=== PATIENT | male | born 1960 | race Caucasian/White ===

== ENCOUNTER 2017-08-31 20:52 | Inpatient (IN) | payer OTHER ==
[2017-08-31 21:43] LABS: ADD MAN DIFF? NO
[2017-08-31 21:47] LABS: BASOPHILS % 0.5 % (0.0-2.0); EOSINOPHILS # 0.1 10^3/ul (0.0-0.5); EOSINOPHILS % 0.8 % (0.0-7.0); HEMATOCRIT 42.1 % (42.0-52.0); HEMOGLOBIN 15.2 g/dl (14.0-18.0); LYMPHOCYTES # 1.6 10^3/ul (0.8-2.9); LYMPHOCYTES % 25.5 % (15.0-51.0); MEAN CORPUSCULAR HGB CONC 36.1 g/dl (32.0-37.0); MEAN CORPUSCULAR VOLUME 85.9 fl (82.0-101.0); MEAN PLATELET VOLUME 11.7 fl (7.4-10.4); MONOCYTE # 0.4 10^3/ul (0.3-0.9); NEUTROPHIL # 4.3 10^3/ul (1.6-7.5); PLATELET COUNT 202 10^3/UL (140-415)
[2017-08-31 21:47] LABS: WHITE BLOOD COUNT 6.4 10^3/ul (4.8-10.8)
[2017-08-31] MEDS: ASPIRIN 81 MG TAB PO (21:53)
[2017-08-31] MEDS: NITROGLYCERIN 2% 1 GM OINT PKT TD (21:56)
[2017-08-31 22:03] LABS: ANION GAP 14 (8-16); BLOOD UREA NITROGEN 13 mg/dl (7-20); CALCIUM 8.3 mg/dl (8.4-10.2); CARBON DIOXIDE 29 mmol/L (21-31); CHLORIDE 94 mmol/L (97-110); POTASSIUM 3.4 mmol/L (3.5-5.1); SODIUM 134 mmol/L (135-144)
[2017-08-31 22:04] LABS: GLUCOSE 574 mg/dl (70-220)
[2017-08-31 22:18] LABS: TROPONIN-I < 0.012 ng/ml (0.00-0.12)
[2017-08-31] MEDS: SOD CHLORIDE 0.9% 1,000 ML IV (22:18)
[2017-08-31 22:46] LABS: MODE ROOM AIR; MetHgb Venous 0.2 %; Sample Type Blood venous; Site VENOUS LINE; Venous COHb 0.1 %; Venous Fraction OxyHgb 89.9 %; Venous Oxygen Sat 90.2 mmHG (55.0-75.0); Venous Total Hemglobin 15.2 g/dl
[2017-08-31] MEDS ORDERED: ACETAMINOPHEN 325 MG TAB PO (23:00)
[2017-08-31] MEDS ORDERED: ONDANSETRON 4 MG INJ IV (23:00)
[2017-08-31] MEDS: INSULIN LISPRO 100 UNIT/ML VIAL SC (23:03)
[2017-09-01] MEDS ORDERED: ACETAMINOPHEN 325 MG TAB PO (02:00)
[2017-09-01] MEDS ORDERED: NACL 0.9% 3 ML SYG IV (02:00)
[2017-09-01] MEDS ORDERED: NITROGLYCERIN (SL) 0.4 MG TAB SL (02:00)
[2017-09-01] MEDS ORDERED: GLUCOSE GEL 15 GRAM TUBE PO ×2 (02:00)
[2017-09-01] MEDS ORDERED: ALBUTEROL/IPRATROPIUM (NEB) 3 ML AMP HHN (02:00)
[2017-09-01] MEDS ORDERED: DEXTROSE 50% 50 ML SYRINGE IV ×2 (02:00)
[2017-09-01] MEDS ORDERED: GLUCAGON 1 MG INJ IM (02:00)
[2017-09-01] MEDS ORDERED: ONDANSETRON 4 MG INJ IV (02:00)
[2017-09-01] MEDS ORDERED: GLUCOSE GEL 15 GRAM TUBE BUCCAL (02:00)
[2017-09-01] MEDS: ACCU-CHEK XX (02:30)
[2017-09-01] MEDS: METOPROLOL 25 MG TAB PO ×3 (03:01→21:27)
[2017-09-01] MEDS: INSULIN GLARGINE [LANtus] 3 ML PEN SC ×2 (03:04→19:41)
[2017-09-01 04:07] LABS: ADD MAN DIFF? NO
[2017-09-01 04:15] LABS: BASOPHILS % 0.4 % (0.0-2.0); EOSINOPHILS # 0.1 10^3/ul (0.0-0.5); EOSINOPHILS % 1.3 % (0.0-7.0); HEMATOCRIT 39.8 % (42.0-52.0); HEMOGLOBIN 14.2 g/dl (14.0-18.0); LYMPHOCYTES # 2.3 10^3/ul (0.8-2.9); LYMPHOCYTES % 33.1 % (15.0-51.0); MEAN CORPUSCULAR HEMOGLOBIN 30.9 pg (29.0-33.0); MEAN CORPUSCULAR HGB CONC 35.7 g/dl (32.0-37.0); MEAN CORPUSCULAR VOLUME 86.5 fl (82.0-101.0); MEAN PLATELET VOLUME 11.2 fl (7.4-10.4); MONOCYTE # 0.5 10^3/ul (0.3-0.9); MONOCYTES % 6.7 % (0.0-11.0); NEUTROPHILS % 58.2 % (39.0-77.0); PLATELET COUNT 196 10^3/UL (140-415); RED CELL DISTRIBUTION WIDTH 12.1 % (11.5-14.5)
[2017-09-01 04:15] LABS: WHITE BLOOD COUNT 6.9 10^3/ul (4.8-10.8)
[2017-09-01 04:42] LABS: CREATINE KINASE 57 IU/L (23-200)
[2017-09-01 04:45] LABS: ALANINE AMINOTRANSFERASE 27 IU/L (13-69); ALBUMIN/GLOBULIN RATIO 1.25; ALKALINE PHOSPHATASE 147 IU/L (42-121); ANION GAP 9 (8-16); ASPARTATE AMINO TRANSFERASE 16 IU/L (15-46); BLOOD UREA NITROGEN 11 mg/dl (7-20); CALCIUM 8.8 mg/dl (8.4-10.2); CARBON DIOXIDE 29 mmol/L (21-31); CHLORIDE 104 mmol/L (97-110); CHOL/HDL RATIO 3.9 RATIO; CHOLESTEROL 165 mg/dl (100-200); CREATININE 0.69 mg/dl (0.61-1.24); GLUCOSE 273 mg/dl (70-220); HDL CHOLESTEROL 42 mg/dl (28-71); LDL CHOLESTEROL,CALCULATED 94 mg/dl; MAGNESIUM 1.8 mg/dl (1.7-2.5); SODIUM 139 mmol/L (135-144); TOTAL PROTEIN 5.4 g/dl (6.1-8.1); TRIGLYCERIDES 143 mg/dl (0-149)
[2017-09-01 04:48] LABS: HEMOGLOBIN A1C 12.5 % (0-5.9)
[2017-09-01 04:55] LABS: CK INDEX 3.6
[2017-09-01 04:56] LABS: CK-MB 2.06 ng/ml (0.0-2.4); TROPONIN-I < 0.012 ng/ml (0.00-0.12)
[2017-09-01] MEDS: POTASSIUM CHLORIDE (SR) 10 MEQ TAB PO ×2 (07:13→10:24)
[2017-09-01] MEDS: INSULIN ASPART [NOVOLOG] 3 ML PEN SC ×8 (08:05→21:40)
[2017-09-01] MEDS: ASPIRIN (EC) 81 MG TAB PO (08:35)
[2017-09-01] MEDS: ENOXAPARIN 40 MG/0.4 ML SYG SC (09:26)
[2017-09-01] MEDS: BENAZEPRIL 5 MG TAB PO ×2 (09:26→21:28)
[2017-09-01] MEDS: FLUOXETINE 20 MG CAP PO (09:26)
[2017-09-01 11:28] LABS: CREATINE KINASE 52 IU/L (23-200)
[2017-09-01 11:39] LABS: CK INDEX 3.5
[2017-09-01 11:45] LABS: CK-MB 1.83 ng/ml (0.0-2.4); TROPONIN-I < 0.012 ng/ml (0.00-0.12)
[2017-09-01 18:43] LABS: GLUCOSE 163 mg/dl (70-220)
[2017-09-01] MEDS: ATORVASTATIN 40 MG TAB PO (21:27)
[2017-09-01] MEDS: GABAPENTIN 300 MG CAP PO (21:28)
[2017-09-01] MEDS: ISOSORBIDE DINITRATE 20 MG TAB PO (23:00)
[2017-09-02] MEDS: ACCU-CHEK XX (02:19)
[2017-09-02 06:53] LABS: ADD MAN DIFF? NO
[2017-09-02 07:02] LABS: BASOPHILS % 0.5 % (0.0-2.0); EOSINOPHILS # 0.1 10^3/ul (0.0-0.5); EOSINOPHILS % 1.3 % (0.0-7.0); HEMATOCRIT 43.3 % (42.0-52.0); LYMPHOCYTES # 2.9 10^3/ul (0.8-2.9); LYMPHOCYTES % 36.4 % (15.0-51.0); MEAN CORPUSCULAR HEMOGLOBIN 31.1 pg (29.0-33.0); MEAN CORPUSCULAR HGB CONC 34.6 g/dl (32.0-37.0); MEAN CORPUSCULAR VOLUME 89.6 fl (82.0-101.0); MEAN PLATELET VOLUME 12.1 fl (7.4-10.4); MONOCYTE # 0.5 10^3/ul (0.3-0.9); MONOCYTES % 6.8 % (0.0-11.0); NEUTROPHIL # 4.4 10^3/ul (1.6-7.5); NEUTROPHILS % 54.5 % (39.0-77.0); PLATELET COUNT 193 10^3/UL (140-415); RED BLOOD COUNT 4.83 10^6/ul (4.70-6.10); RED CELL DISTRIBUTION WIDTH 12.4 % (11.5-14.5)
[2017-09-02 07:38] LABS: TROPONIN-I < 0.012 ng/ml (0.00-0.12)
[2017-09-02 07:44] LABS: ANION GAP 14 (8-16); BLOOD UREA NITROGEN 13 mg/dl (7-20); CALCIUM 8.2 mg/dl (8.4-10.2); CARBON DIOXIDE 29 mmol/L (21-31); CHLORIDE 104 mmol/L (97-110); CREATININE 0.69 mg/dl (0.61-1.24); GLUCOSE 131 mg/dl (70-220); MAGNESIUM 1.7 mg/dl (1.7-2.5); PHOSPHORUS 3.6 mg/dl (2.5-4.9); POTASSIUM 4.2 mmol/L (3.5-5.1); SODIUM 143 mmol/L (135-144)
[2017-09-02] MEDS: INSULIN ASPART [NOVOLOG] 3 ML PEN SC ×7 (07:55→20:50)
[2017-09-02] MEDS: ASPIRIN (EC) 81 MG TAB PO (08:21)
[2017-09-02] MEDS: BENAZEPRIL 5 MG TAB PO ×2 (08:21→20:40)
[2017-09-02] MEDS: ISOSORBIDE DINITRATE 20 MG TAB PO ×3 (08:21→20:42)
[2017-09-02] MEDS: METOPROLOL 25 MG TAB PO ×2 (08:21→20:42)
[2017-09-02] MEDS: FLUOXETINE 20 MG CAP PO (08:21)
[2017-09-02] MEDS: ENOXAPARIN 40 MG/0.4 ML SYG SC (08:25)
[2017-09-02] MEDS: REGADENOSON 0.4 MG/5 ML SYG (11:54)
[2017-09-02] MEDS ORDERED: ONDANSETRON 4 MG INJ IV (12:00)
[2017-09-02] MEDS: MAGNESIUM OXIDE 400 MG TAB PO (18:06)
[2017-09-02] MEDS: GABAPENTIN 300 MG CAP PO (20:39)
[2017-09-02] MEDS: ATORVASTATIN 40 MG TAB PO (20:39)
[2017-09-02] MEDS: INSULIN GLARGINE [LANtus] 3 ML PEN SC (20:45)
[2017-09-03] MEDS: ACCU-CHEK XX (02:00)
[2017-09-03] MEDS: morphine 2 MG INJ IV ×3 (07:35→22:58)
[2017-09-03] MEDS: INSULIN ASPART [NOVOLOG] 3 ML PEN SC ×7 (07:55→20:39)
[2017-09-03] MEDS: ENOXAPARIN 40 MG/0.4 ML SYG SC (08:07)
[2017-09-03] MEDS: FLUOXETINE 20 MG CAP PO (08:09)
[2017-09-03] MEDS: BENAZEPRIL 5 MG TAB PO ×2 (08:09→20:40)
[2017-09-03] MEDS: ISOSORBIDE DINITRATE 20 MG TAB PO ×3 (08:09→20:39)
[2017-09-03] MEDS: ASPIRIN (EC) 81 MG TAB PO (08:10)
[2017-09-03] MEDS: METOPROLOL 25 MG TAB PO ×2 (08:10→20:40)
[2017-09-03] MEDS: INSULIN GLARGINE [LANtus] 3 ML PEN SC (20:38)
[2017-09-03] MEDS: GABAPENTIN 300 MG CAP PO (20:39)
[2017-09-03] MEDS: ATORVASTATIN 40 MG TAB PO (20:40)
[2017-09-04] MEDS: ACCU-CHEK XX (02:00)
[2017-09-04 07:27] LABS: ADD MAN DIFF? NO
[2017-09-04 07:31] LABS: WHITE BLOOD COUNT 7.1 10^3/ul (4.8-10.8)
[2017-09-04 07:31] LABS: BASOPHILS % 0.4 % (0.0-2.0); EOSINOPHILS # 0.1 10^3/ul (0.0-0.5); EOSINOPHILS % 1.1 % (0.0-7.0); HEMOGLOBIN 13.6 g/dl (14.0-18.0); LYMPHOCYTES # 1.7 10^3/ul (0.8-2.9); LYMPHOCYTES % 23.7 % (15.0-51.0); MEAN CORPUSCULAR HGB CONC 34.9 g/dl (32.0-37.0); MEAN CORPUSCULAR VOLUME 88.8 fl (82.0-101.0); MONOCYTE # 0.7 10^3/ul (0.3-0.9); MONOCYTES % 9.4 % (0.0-11.0); NEUTROPHIL # 4.6 10^3/ul (1.6-7.5); PLATELET COUNT 175 10^3/UL (140-415); RED BLOOD COUNT 4.39 10^6/ul (4.70-6.10); RED CELL DISTRIBUTION WIDTH 12.2 % (11.5-14.5)
[2017-09-04 07:48] LABS: INR 0.88; PT RATIO 0.9
[2017-09-04] MEDS: INSULIN ASPART [NOVOLOG] 3 ML PEN SC ×6 (07:55→20:57)
[2017-09-04 08:02] LABS: ANION GAP 11 (8-16); BLOOD UREA NITROGEN 11 mg/dl (7-20); CALCIUM 7.7 mg/dl (8.4-10.2); CARBON DIOXIDE 29 mmol/L (21-31); CHLORIDE 102 mmol/L (97-110); GLUCOSE 189 mg/dl (70-220); POTASSIUM 3.5 mmol/L (3.5-5.1); SODIUM 138 mmol/L (135-144)
[2017-09-04] MEDS: ENOXAPARIN 40 MG/0.4 ML SYG SC (08:13)
[2017-09-04] MEDS: ISOSORBIDE DINITRATE 20 MG TAB PO ×3 (08:34→21:06)
[2017-09-04] MEDS: DIAZEPAM 5 MG TAB PO (08:34)
[2017-09-04] MEDS: BENAZEPRIL 5 MG TAB PO ×2 (08:34→21:08)
[2017-09-04] MEDS: ASPIRIN (EC) 81 MG TAB PO (08:34)
[2017-09-04] MEDS: DIPHENHYDRAMINE 50 MG CAP PO (08:34)
[2017-09-04] MEDS: FLUOXETINE 20 MG CAP PO ×3 (08:34→20:51)
[2017-09-04] MEDS ORDERED: LIDOCAINE 1% (MDV) 20 ML INJ (08:52)
[2017-09-04] MEDS ORDERED: HEPARIN 1000 UNITS/ML 10 ML INJ (08:52)
[2017-09-04] MEDS ORDERED: FENTAnyl 50 MCG/ML VIAL (08:52)
[2017-09-04] MEDS ORDERED: MIDAZOLAM 1 MG/ML 2 ML INJ (08:53)
[2017-09-04] MEDS ORDERED: VERAPAMIL 5 MG INJ (08:53)
[2017-09-04] MEDS ORDERED: NITROGLYCERIN (IC) 100 MCG/ML INJ (08:53)
[2017-09-04] MEDS ORDERED: IOHEXOL 350MG/ML 50 ML BTL (09:59)
[2017-09-04] MEDS ORDERED: CLOPIDOGREL 300 MG TAB (09:59)
[2017-09-04] MEDS ORDERED: ASPIRIN 325 MG TAB (09:59)
[2017-09-04] MEDS ORDERED: IODIXANOL LOCM 100 ML BTL (09:59)
[2017-09-04] MEDS: SOD CHLORIDE 0.9% 1,000 ML IV (10:45)
[2017-09-04] MEDS ORDERED: AL HYDROX/MG HYDROX/SIMETH 30 ML CUP PO (11:00)
[2017-09-04] MEDS ORDERED: ACETAMINOPHEN 325 MG TAB PO (11:00)
[2017-09-04] MEDS ORDERED: ONDANSETRON 4 MG INJ IV (11:00)
[2017-09-04] MEDS: morphine 2 MG INJ IV (18:23)
[2017-09-04] MEDS: METOPROLOL 25 MG TAB PO ×2 (20:51→21:07)
[2017-09-04] MEDS: ATORVASTATIN 40 MG TAB PO (21:06)
[2017-09-04] MEDS: GABAPENTIN 300 MG CAP PO (21:06)
[2017-09-04] MEDS: INSULIN GLARGINE [LANtus] 3 ML PEN SC (22:02)
[2017-09-04] MEDS: OXYCODONE/ACETAMINOPHEN (5/325) TAB PO (23:01)
[2017-09-05] MEDS: ACCU-CHEK XX (02:00)
[2017-09-05] MEDS: ENOXAPARIN 40 MG/0.4 ML SYG SC (08:10)
[2017-09-05] MEDS: CLOPIDOGREL 75 MG TAB PO (08:11)
[2017-09-05] MEDS: ASPIRIN (EC) 81 MG TAB PO (08:12)
[2017-09-05] MEDS: FLUOXETINE 20 MG CAP PO (08:12)
[2017-09-05] MEDS: BENAZEPRIL 5 MG TAB PO (08:12)
[2017-09-05] MEDS: METOPROLOL 25 MG TAB PO ×2 (08:13→20:45)
[2017-09-05] MEDS: ISOSORBIDE DINITRATE 20 MG TAB PO ×3 (08:13→20:44)
[2017-09-05] MEDS: INSULIN ASPART [NOVOLOG] 3 ML PEN SC ×7 (08:17→20:54)
[2017-09-05 08:48] LABS: ADD MAN DIFF? NO
[2017-09-05 09:03] LABS: BASOPHILS % 0.4 % (0.0-2.0); EOSINOPHILS # 0.1 10^3/ul (0.0-0.5); EOSINOPHILS % 1.2 % (0.0-7.0); HEMATOCRIT 39.3 % (42.0-52.0); HEMOGLOBIN 13.5 g/dl (14.0-18.0); LYMPHOCYTES # 1.3 10^3/ul (0.8-2.9); LYMPHOCYTES % 17.4 % (15.0-51.0); MEAN CORPUSCULAR HGB CONC 34.4 g/dl (32.0-37.0); MEAN CORPUSCULAR VOLUME 90.1 fl (82.0-101.0); MEAN PLATELET VOLUME 12.2 fl (7.4-10.4); MONOCYTE # 0.5 10^3/ul (0.3-0.9); MONOCYTES % 7.2 % (0.0-11.0); NEUTROPHIL # 5.3 10^3/ul (1.6-7.5); NEUTROPHILS % 73.2 % (39.0-77.0); PLATELET COUNT 180 10^3/UL (140-415); RED BLOOD COUNT 4.36 10^6/ul (4.70-6.10); RED CELL DISTRIBUTION WIDTH 12.2 % (11.5-14.5)
[2017-09-05 09:03] LABS: WHITE BLOOD COUNT 7.3 10^3/ul (4.8-10.8)
[2017-09-05 09:47] LABS: ANION GAP 8 (8-16); BLOOD UREA NITROGEN 12 mg/dl (7-20); CARBON DIOXIDE 31 mmol/L (21-31); CHLORIDE 101 mmol/L (97-110); CREATININE 0.73 mg/dl (0.61-1.24); GLUCOSE 216 mg/dl (70-220); POTASSIUM 3.6 mmol/L (3.5-5.1); SODIUM 136 mmol/L (135-144)
[2017-09-05] MEDS: OXYCODONE/ACETAMINOPHEN (5/325) TAB PO (10:55)
[2017-09-05] MEDS: BENAZEPRIL 20 MG TAB PO (20:45)
[2017-09-05] MEDS: GABAPENTIN 300 MG CAP PO (20:45)
[2017-09-05] MEDS: ATORVASTATIN 40 MG TAB PO (20:45)
[2017-09-05] MEDS: INSULIN GLARGINE [LANtus] 3 ML PEN SC (20:53)
[2017-09-05] MEDS: morphine 2 MG INJ IV (23:00)
[2017-09-06] MEDS: ACCU-CHEK XX (02:43)
[2017-09-06] MEDS: LEVOTHYROXINE 25 MCG TAB PO (06:11)
[2017-09-06] MEDS: INSULIN ASPART [NOVOLOG] 3 ML PEN SC ×4 (08:00→11:34)
[2017-09-06] MEDS: ENOXAPARIN 40 MG/0.4 ML SYG SC (08:24)
[2017-09-06] MEDS: FLUOXETINE 20 MG CAP PO (08:26)
[2017-09-06] MEDS: BENAZEPRIL 20 MG TAB PO (08:26)
[2017-09-06] MEDS: ASPIRIN (EC) 81 MG TAB PO (08:26)
[2017-09-06] MEDS: CLOPIDOGREL 75 MG TAB PO (08:26)
[2017-09-06] MEDS: ISOSORBIDE DINITRATE 20 MG TAB PO ×2 (08:26→15:16)
[2017-09-06] MEDS: METOPROLOL 25 MG TAB PO (08:27)
[2017-09-06 09:31] LABS: ANION GAP 10 (8-16); BLOOD UREA NITROGEN 10 mg/dl (7-20); CALCIUM 8.2 mg/dl (8.4-10.2); CARBON DIOXIDE 31 mmol/L (21-31); CHLORIDE 103 mmol/L (97-110); CREATININE 0.68 mg/dl (0.61-1.24); GLUCOSE 136 mg/dl (70-220); POTASSIUM 3.6 mmol/L (3.5-5.1); SODIUM 140 mmol/L (135-144)
[2017-09-06] MEDS: morphine 2 MG INJ IV (11:15)
== END 2017-09-06 16:48 | disposition home or self-care (01) | DRG 247 ==
LOC: MS3 22:34 → TEL 09-02 06:03 → E/R 20:52 → ICU 09-04 10:00 → MS4 09-04 20:31
PROC: 027135Z Dilation of Coronary Artery, Two Arteries with Two Drug-eluting Intraluminal Devices, Percutaneous Approach (ICD-10-PCS; principal; 2017-09-04 08:40)
PROC: 4A023N7 Measurement of Cardiac Sampling and Pressure, Left Heart, Percutaneous Approach (ICD-10-PCS; 2017-09-04 08:40)
PROC: B211YZZ Fluoroscopy of Multiple Coronary Arteries using Other Contrast (ICD-10-PCS; 2017-09-04 08:40)
PROC: 4A033BC Measurement of Arterial Pressure, Coronary, Percutaneous Approach (ICD-10-PCS; 2017-09-04 08:40)
DX: I25.110 Atherosclerotic heart disease of native coronary artery with unstable angina pectoris (principal); E11.65 Type 2 diabetes mellitus with hyperglycemia; I10 Essential (primary) hypertension; I25.9 Chronic ischemic heart disease, unspecified; E78.5 Hyperlipidemia, unspecified; R00.1 Bradycardia, unspecified; E03.9 Hypothyroidism, unspecified; Z95.1 Presence of aortocoronary bypass graft
CPT/HCPCS: 36415; 71045; 78452; 80048; 80053; 80061; 82550; 82553; 82803; 82947; 82962; 83036; 83735; 84100; 84443; 84484; 85025; 85610; 92941; 93005; 93017; 93306; 93458; 96372; 99217; 99285-25